=== PATIENT | female | born 1970 | race Caucasian/White ===

== ENCOUNTER 2018-11-30 12:30 | Emergency (ER) | payer BC ==
[~2018-11-30] VITALS: Ht 162.6 cm; Wt 81.6 kg
[2018-11-30] MEDS ORDERED: NAPROXEN 500 MG TABLET PO STA (13:11)
[2018-11-30] MEDS ORDERED: HYDROcodone/APAP 5/325MG 1 TAB TABLET PO ONE (13:15)
--- NOTE | 2018-11-30 13:35 | RAD ---
Examination: 3 views of the left ankle HISTORY: History of fall, pain, swelling COMPARISON: None available FINDINGS: The alignment of the ankle mortise grossly appears unremarkable. Moderate soft tissue swelling identified lateral and anterior to the fibula. IMPRESSION: 1. No acute osseous findings. 2. Moderate soft tissue swelling anterior and lateral to the lateral malleolus likely secondary to soft tissue injury. Electronically signed by: Jaxson Lucia MD (11/30/2018 1:33 PM) [place] [id number]
[2018-11-30] MEDS ORDERED: DICL50TA2 PO (13:46)
--- NOTE | 2018-11-30 13:46 | PHYS DOC ---
Past Medical History Past Medical History: No Pertinent History Past Surgical History: No Surgical History Alcohol Use: None Drug Use: None Adult General Chief Complaint Chief Complaint: ANKLE PROBLEM HPI HPI Patient is a 48 year old female who presents with 10 out of 10 sharp constant left lateral ankle pain that began today after she fell down 2 steps. Patient denies any loss of consciousness. Denies hitting her head on the ground. She states the pain is worse on weight bearing. Review of Systems Review of Systems Constitutional: Denies fever or chills [] Musculoskeletal: Reports left lateral ankle pain Integument: Denies rash or skin lesions [] Neurologic: Denies headache, focal weakness or sensory changes [] All other systems were reviewed and found to be within normal limits, except as documented in this note. Current Medications Current Medications Current Medications Medications (Trade) Dose Ordered Sig/Jackeline Start Time Stop Time Status Last Admin Dose Admin Acetaminophen/ Hydrocodone Bitart (Lortab 5/325) 2 tab 1X ONCE 11/30/18 13:15 11/30/18 13:16 UNV Naproxen (Naprosyn) 500 mg 1X STAT 11/30/18 13:11 11/30/18 13:12 UNV Allergies Allergies Allergies Coded Allergies Type Severity Reaction Last Updated Verified No Known Drug Allergies 11/30/18 No Physical Exam Physical Exam Constitutional: Well developed, well nourished, no acute distress, non-toxic appearance. [] Skin: Warm, dry, no erythema, no rash. [] Back: No tenderness, no CVA tenderness. [] Extremities: Left lateral ankle with moderate amount of soft tissue swelling. Tenderness on palpation of the left lateral. Bruising noted on the left lateral ankle. Limited range of motion to the left ankle due to pain. +2 left pedal pulse. Cap refill less than 2 seconds left toes. Sensation intact to the left lower extremity Neurologic: Alert and oriented X 3, normal motor function, normal sensory function, no focal deficits noted. [] Psychologic: Affect normal, judgement normal, mood normal. [] Current Patient Data Vital Signs Vital Signs Date Time Temp Pulse Resp B/P (MAP) Pulse Ox O2 Delivery O2 Flow Rate FiO2 11/30/18 13:10 18 Room Air EKG EKG [] Radiology/Procedures Radiology/Procedures []PROCEDURE: ANKLE LEFT 3V Examination: 3 views of the left ankle HISTORY: History of fall, pain, swelling COMPARISON: None available FINDINGS: The alignment of the ankle mortise grossly appears unremarkable. Moderate soft tissue swelling identified lateral and anterior to the fibula. IMPRESSION: 1. No acute osseous findings. 2. Moderate soft tissue swelling anterior and lateral to the lateral malleolus likely secondary to soft tissue injury. Electronically signed by: Jaxson Lucia MD (11/30/2018 1:33 PM) [place] [id number] DICTATED and SIGNED BY: JAXSON LUCIA MD DATE: 11/30/18 1333 Course & Med Decision Making Course & Med Decision Making Pertinent Labs and Imaging studies reviewed. (See chart for details) This is a 48-year-old male patient who presents to ED today with left ankle pain after falling down 2 steps. Left ankle x-rays interpreted by radiologist were negative for any acute findings, noted for soft tissue swelling on the left lateral ankle. Jeremy wrap and Aircast applied to the laboratory tech, neurovascular exam is intact. Ice elevation encouraged. Follow-up with orthopedic doctor in one week if pain persists. Dragon Disclaimer Dragon Disclaimer This electronic medical record was generated, in whole or in part, using a voice recognition dictation system. Departure Departure Impression: Primary Impression: Fall down steps Additional Impression: Left ankle sprain Disposition: 01 HOME, SELF-CARE Condition: STABLE Referrals: NO PCP (PCP) HUMBLE MARTINEZ II, MD Follow-up in one week Patient Instructions: Ankle Sprain, Acute, with Phase I Rehab-SportsMed Additional Instructions: You were evaluated in the emergency room and noted to have left ankle sprain. Try to ice and elevate the extremity. Wear the jeremy wrap and air cast provided as tolerated. Try to ice and elevate the extremity. Follow-up with your own doctor in 1-2 weeks. Scripts Diclofenac Potassium (DICLOFENAC POTASSIUM) 50 Mg Tablet 1 TAB PO BID, #20 TAB 0 Refills Prov: PALUA HAMPTON APRN 11/30/18 Problem Qualifiers Primary Impression: Fall down steps Encounter type: initial encounter Qualified Codes: W10.8XXA - Fall (on) (from) other stairs and steps, initial encounter Additional Impression: Left ankle sprain Encounter type: initial encounter Involved ligament of ankle: unspecified ligament Qualified Codes: S93.402A - Sprain of unspecified ligament of left ankle, initial encounter PAULA HAMPTON APRN Nov 30, 2018 13:46
== END 2018-11-30 14:22 | disposition home or self-care (01) ==
LOC: ER 12:30
DX: S93.402A Sprain of unspecified ligament of left ankle, initial encounter (principal); W10.9XXA Fall (on) (from) unspecified stairs and steps, initial encounter; Y93.89 Activity, other specified; Y92.89 Other specified places as the place of occurrence of the external cause; Y99.8 Other external cause status
CPT/HCPCS: 29515; 73610; 99284-25

== ENCOUNTER 2020-02-14 20:04 | Emergency (ER) | payer BC ==
[~2020-02-14] VITALS: Ht 162.6 cm; Wt 77.0 kg
[~2020-02-14 20:04] MED LIST: DICL50TA2 PO
--- NOTE | 2020-02-14 21:08 | PHYS DOC ---
Past Medical History Past Medical History: No Pertinent History Past Surgical History: Cholecystectomy Smoking Status: Current Every Day Smoker Alcohol Use: None Drug Use: None General Adult EDM: Chief Complaint: RAPID HEART RATE HPI: HPI: Patient is a 49 year old female with no past medical history currently on no medications presents for the evaluation of palpitations. Patient states around 1845 hrs. she was smoking marijuana when she suddenly felt jittery and noticed her heart rate was elevated. Patient took her heart rate and noted it to be in the 140s. Patient denied any associated shortness of breath nausea or chest pain. Patient states she frequently smokes marijuana has never had this abnormal sensation in the past. On arrival EKG was performed shows a heart rate of 109 sinus tachycardia. At the time of my exam patient's heart rate improved in the mid 90s. Review of Systems: Review of Systems: Constitutional: Denies fever or chills. [] Eyes: Denies change in visual acuity. [] HENT: Denies nasal congestion or sore throat. [] Respiratory: Denies cough or shortness of breath. [] Cardiovascular: Denies chest pain or edema. [] Positive palpitations GI: Denies abdominal pain, nausea, vomiting, bloody stools or diarrhea. [] : Denies dysuria. [] Musculoskeletal: Denies back pain or joint pain. [] Integument: Denies rash. [] Neurologic: Denies headache, focal weakness or sensory changes. [] Endocrine: Denies polyuria or polydipsia. [] Lymphatic: Denies swollen glands. [] Psychiatric: Denies depression or anxiety. [] Heart Score: Risk Factors: Risk Factors: DM, Current or recent (<one month) smoker, HTN, HLP, family history of CAD, obesity. Risk Scores: Score 0 - 3: 2.5% MACE over next 6 weeks - Discharge Home Score 4 - 6: 20.3% MACE over next 6 weeks - Admit for Clinical Observation Score 7 - 10: 72.7% MACE over next 6 weeks - Early Invasive Strategies Allergies: Allergies: Allergies Coded Allergies Type Severity Reaction Last Updated Verified No Known Drug Allergies 11/30/18 No Physical Exam: PE: Constitutional: Well developed, well nourished, no acute distress, non-toxic appearance. [] HENT: Normocephalic, atraumatic, bilateral external ears normal, oropharynx m oist, no oral exudates, nose normal. [] Eyes: PERRLA, EOMI, conjunctiva normal, no discharge. [] Neck: Normal range of motion, no tenderness, supple, no stridor. [] Cardiovascular:Heart rate regular rhythm, no murmur [] Lungs & Thorax: Bilateral breath sounds clear to auscultation [] Abdomen: Bowel sounds normal, soft, no tenderness, no masses, no pulsatile masses. [] Skin: Warm, dry, no erythema, no rash. [] Back: No tenderness, no CVA tenderness. [] Extremities: No tenderness, no cyanosis, no clubbing, ROM intact, no edema. [] Neurologic: Alert and oriented X 3, normal motor function, normal sensory function, no focal deficits noted. [] Psychologic: Affect normal, judgement normal, mood normal. [] Current Patient Data: Vital Signs: Vital Signs Date Time Temp Pulse Resp B/P (MAP) Pulse Ox O2 Delivery O2 Flow Rate FiO2 02/14/20 20:21 98.7 110 16 162/86 (111) 96 Room Air 98.7 EKG: EKG: EKG performed at 2020 heart rate [address] elevation no ST depression no acute [place] [] Radiology/Procedures: Radiology/Procedures: [] Course & Med Decision Making: Course & Med Decision Making Pertinent Labs and Imaging studies reviewed. (See chart for details) [] Treated with 1 L IV fluids. Patient states she feels much better. Reevaluation heart rate 83 sinus rhythm. Monica Disclaimer: Monica Disclaimer: This electronic medical record was generated, in whole or in part, using a voice recognition dictation system. Departure Departure Impression: Primary Impression: Palpitation Disposition: 01 DC HOME SELF CARE/HOMELESS Condition: STABLE Referrals: NO PCP (PCP) Patient Instructions: Palpitations RODRIGUE LOPEZ I DO Feb 14, 2020 21:08
[2020-02-14] MEDS ORDERED: IV NORMAL SALINE 1000ML BAG 1,000 ML IV ONE (22:00)
[2020-02-14 22:30] VITALS: BP 122/68
--- NOTE | 2020-02-15 14:10 | EKG ---
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
== END 2020-02-14 22:44 | disposition home or self-care (01) ==
LOC: ER 20:04
DX: R00.2 Palpitations (principal); R00.0 Tachycardia, unspecified; F17.200 Nicotine dependence, unspecified, uncomplicated
CPT/HCPCS: 93005; 96360; 99283; J7030